=== PATIENT | female | born 1980 | race Caucasian/White ===

== ENCOUNTER 2022-04-09 13:25 | Emergency (ER) | payer MEDICAID, SELFPAY ==
[2022-04-09 13:37] VITALS: BP 144/91; PULSE 85; RESP 18; TEMP 35.9; O2SAT 98; BMI 36.0
--- NOTE | 2022-04-09 13:55 | ED.GENADULT ---
HPI - General Adult General Chief complaint: Unspecified Complaint, Adult Stated complaint: Possible Covid Time Seen by Provider: 04/09/22 13:37 History of Present Illness HPI narrative: 41yo female patient presents to the ED with multiple complaints and request for COVID testing. The patient reports her work has requested she receive a test and no testing facilities are available for evaluation. The patient states that she has had cough, shortness of breath with tightness secondary to cough, nausea, and diarrhea. The patient denies abdominal pain. She has had no known exposure to COVID. She is vaccinated and boosted. she denies fever, but she reports chills and sweats. She has had no treatment prior to arrival. She smokes greater than 1 pack per day. She has no history of CAD, asthma, or COPD. See nursing notes for details. Related Data Home Medications Medication Instructions Recorded Confirmed No Known Home Medications 04/09/22 04/09/22 Allergies Allergy/AdvReac Type Severity Reaction Status Date / Time ibuprofen Allergy Verified 04/09/22 13:36 ketorolac [From Toradol] Allergy Verified 04/09/22 13:36 Review of Systems Const: Reports: chills and fatigue; Denies: fever ENMT: Denies: throat pain, neck pain, hoarseness or nasal congestion Cardio: Reports: shortness of breath with exertion and other (tightness with cough reported); Denies: chest pain, palpitations or lightheadedness Resp: Reports: shortness of breath GI: Reports: nausea and diarrhea; Denies: abdominal pain, vomiting or constipation Musculo: Denies: back pain or neck pain Neuro: Denies: headache, numbness in extremities or weakness in extremities Endo: Reports: fatigue PFSH PFSH Medical History (Updated 04/09/22 @ 14:02 by Liz Knutson DO) No significant past medical history Surgical History (Updated 04/09/22 @ 14:00 by Suzanne Marcos RN) H/O: hysterectomy History of delivery Social History Smoking Status: Current every day smoker How often do you have a drink containing alcohol: never AUDIT-C Alcohol total score: 0 Non-prescribed substance use: denies use Exam Const: Vital Signs, click to edit/add: Vital Signs - 24 hr 04/09/22 13:37 Temperature 96.7 F L Pulse Rate [Right Pulse Oximeter] 85 Respiratory Rate 18 Blood Pressure [Le ft Upper Arm] 144/91 H Pulse Oximetry 98 Documenting provider has reviewed patient's vital signs: yes Common normals: no apparent distress, oriented x3, healthy appearing, alert and well nourished General appearance: cooperative, comfortable, well kempt and well developed; not in distress, not anxious and not ill appearing Nutritional appearance: obese Orientation/consciousness: Yes awake, Yes oriented to person, Yes oriented to place and Yes oriented to time HENMT: Common normals: normocephalic, hearing grossly normal bilaterally, external ears normal and TM's normal bilaterally Head and scalp: normocephalic General ear: hearing grossly impaired External ear: external ears normal Tympanic membrane: TM's normal bilaterally Neck & C-Spine: Common normals: full ROM, no lymphadenopathy and supple Chest: Common normals: palpation of chest normal Resp: Common normals: normal respiratory effort, no retractions, no use of accessory muscles and clear to auscultation bilaterally Effort & inspection: able to speak in complete sentences Auscultation: clear to auscultation bilaterally Cardio: Common normals: regular rate, S1 normal heart sound, S2 normal heart sound and no murmurs Rate: regular rate Heart sounds: S1 normal and S2 normal GI: Common normals: Normal to inspection, nondistended, normoactive bowel sounds present, soft to palpation and non-tender Palpation: soft Extremity: Common normals: normal to inspection, full ROM, normal capillary refill and no clubbing, cyanosis or edema Neuro: Common normals: oriented x3, CN's II-XII intact bilaterally, moves all extremities, no focal motor deficits and no sensory deficits noted Sensorium/orientation: awake, alert, oriented to person, oriented to place and oriented to time Psych: Common normals: mental status grossly normal, thought process normal, cooperative, affect normal, speech normal and activity/motor behavior normal Appearance: well kempt Speech: normal speech Thought process: normal thought process Skin: Common normals: no rashes or lesions noted General skin exam: no rashes or lesions noted Course Vital Signs Vital signs: Initial Vital Signs Temperature 96.7 F L 04/09/22 13:37 Temperature Source Temporal Artery Scan 04/09/22 13:37 Pulse Rate 85 04/09/22 13:37 Respiratory Rate 18 04/09/22 13:37 Blood Pressure 144/91 H 04/09/22 13:37 Blood Pressure Mean 108 04/09/22 13:37 Blood Pressure Position Sitting 04/09/22 13:37 Pulse Oximetry 98 04/09/22 13:37 Oxygen Delivery Method 04/09/22 13:37 Vital Signs Temperature 96.7 F L 04/09/22 13:37 Pulse Rate 85 04/09/22 13:37 Respiratory Rate 18 04/09/22 13:37 Blood Pressure 144/91 H 04/09/22 13:37 Pulse Oximetry 98 04/09/22 13:37 Temperature 96.7 F L 04/09/22 13:37 Pulse Rate 85 04/09/22 13:37 Respiratory Rate 18 04/09/22 13:37 Blood Pressure 144/91 H 04/09/22 13:37 Pulse Oximetry 98 04/09/22 13:37 Medical Decision Making MDM Narrative Medical decision making narrative: Lacey presented to the emergency department requesting a COVID test. She was advised that the emerged department does not stand as a routine testing facility. However, the patient was provided a COVID test. Patient was offered additional workup or evaluation for alternative etiologies, but she only needs COVID testing for work. Lab Data Lab results reviewed: Yes I reviewed the patient's lab results Labs: Lab Results 04/09/22 Range/Units 13:53 SARS-CoV-2 (PCR) Negative SARS-CoV-2 (Negative) Discharge Plan Discharge Clinical Impression: Encounter for laboratory testing for COVID-19 virus Cough Qualifiers: Cough type: acute Qualified Code(s): R05.1 - Acute cough Patient Disposition: Home, Self-Care Condition: Stable Instructions: Acute Cough (ED) Additional Instructions: Thank you for choosing [facility]. Plan not to treat with antibiotics. Patient's questions were answered regarding decision not to treat, and she verbalized understanding. Encouraged continued aggressive treatment of symptoms including: rest, increased fluids, and Ibuprofen and Tylenol as needed, and OTC medication of choice. Patient may consider monitoring oxygen status with a home pulse oximeter. Goal greater than 90%. If decreases with exertion, rest and monitor for improvement. If no improvement noted with rest, may consider additional evaluation in the emergency department. Encouraged to offer to eat and drink to ensure adequate intake. Advised to use bulb suction, or similar device, to keep nasal passageways clear prior to eating and resting. The patient is asked to return if developing severe respiratory or GI distress, inability to eat or drink, decreased urine output, or other new/worsening symptoms develop. Additional discussion regarding the course of the illness, as well as helpful treatments, including use of a vaporizer/humidifier, steamed bathroom, or cool outdoor air. Patient may also consider Vitamin D and C supplementation as well as probiotic. Patient should nursing home in place with no contact with other people until you feel better, AND if has been at least 10 days since first symptoms noted, AND NO FEVER for 24hrs WITHOUT medications. Once resulted, whether positive or negative, you should nursing home in place until your symptoms are improved. Viral illnesses can take 10-14 days to improve. If your symptoms persist please contact your primary care physician for follow-up. If you have worsening, difficulty breathing, or inability to eat/drink please return for reevaluation. Activity Level: No Restrictions Activity Detail: Socially distance until symptoms have resolved. Prescriptions: No Action No Known Home Medications 0RF Stand Alone Forms: Work/School Release, [employer] Info Instructions
--- NOTE | 2022-04-09 14:39 | ED.NURSE ---
work note and dc instructions given to pt. will call pt with covid results.
[2022-04-09 15:19] LABS: SARS PCR* Negative SARS-CoV-2 (Negative)
--- NOTE | 2022-04-09 15:20 | ED.NURSE ---
negative covid result called to pt
== END 2022-04-09 14:40 | disposition home or self-care (01) ==
LOC: ED 14:13
PROVIDERS: Emergency Provider Family Medicine
DX: R05.1 Acute cough (principal); Z20.822 Contact with and (suspected) exposure to COVID-19
CPT/HCPCS: 87635; 99281

== ENCOUNTER 2022-04-26 23:09 | Emergency (ER) | payer MEDICAID, SELFPAY ==
[2022-04-26 23:16] VITALS: BP 145/78; PULSE 89; RESP 18; TEMP 36.4; O2SAT 97; BMI 34.5
--- NOTE | 2022-04-26 23:29 | ED.GENADULT ---
HPI - General Adult General Time Seen by Provider: 23:30 Date Seen: 04/26/22 Chief complaint: Shoulder Injury/Pain Stated complaint: Right Side Shoulder Pain Time Seen by Provider: 04/26/22 23:20 Source: patient Mode of arrival: ambulatory Limitations: no limitations History of Present Illness HPI narrative: 41-year-old right-handed female with a couple of weeks of right shoulder pain. No specific injury. Pain is worse with movement and she describes it as aching. She has tried Tylenol and topical pain medications with minimal improvement. She has tried ice and heat. She has not previously been seen for this. She denies chest pain or shortness of breath. Related Data Home Medications Medication Instructions Recorded Confirmed No Known Home Medications 04/09/22 04/09/22 Allergies Allergy/AdvReac Type Severity Reaction Status Date / Time ibuprofen Allergy Verified 04/09/22 13:36 ketorolac [From Toradol] Allergy Verified 04/09/22 13:36 Review of Systems Status of ROS: Reports: 10 or more systems reviewed and unremarkable except as noted in History and below [facility] Medical History (Updated 04/26/22 @ 23:36 by Luis Eduardo Gonzalez MD) No significant past medical history Surgical History (Updated 04/09/22 @ 14:00 by Suzanne Marcos RN) H/O: hysterectomy History of delivery Social History Smoking Status: Current every day smoker How often do you have a drink containing alcohol: never AUDIT-C Alcohol total score: 0 Non-prescribed substance use: denies use Exam Narrative: Exam Narrative: General: well nourished , NAD Head: Atraumatic and normocephalic ENT: External ears and external nose are normal Eyes: Conjunctiva clear, pupils are equal reactive, external ocular motions are intact Neck: Full spontaneous range of motion of the neck Lungs: No respiratory distress Musculoskeletal: Diffuse tenderness of the right shoulder. Pain with resisted external rotation as well as extension, pain with pop can test. Neurologic: No gross focal neurologic deficits Skin: No rashes Psych: Mood and affect are appropriate Const: Vital Signs, click to edit/add: Vital Signs - 24 hr 04/26/22 23:16 Temperature 97.6 F Pulse Rate [Right Pulse Oximeter] 89 Respiratory Rate 18 Blood Pressure [Ri ght Upper Arm] 145/78 H Pulse Oximetry 97 Oxygen Delivery Me thod Room Air Course Course Hospital Course: Patient seen and examined, prior records are reviewed. Differential diagnosis includes but not limited to strain, sprain, tendinitis, fracture, septic arthritis, bursitis. Patient with right shoulder pain for couple of weeks, no specific injury. On exam she has diffuse tenderness of the shoulder and pain with pop can test as well as external rotation. Symptoms are most consistent with rotator cuff tendinitis. Patient will be started on oral steroid, as well as given limited number of [place] and a sling. Follow-up with orthopedics for consideration for further rate evaluation and imaging, also consider physical therapy. Vital Signs Vital signs: Initial Vital Signs Temperature 97.6 F 04/26/22 23:16 Temperature Source Temporal Artery Scan 04/26/22 23:16 Pulse Rate 89 04/26/22 23:16 Respiratory Rate 18 04/26/22 23:16 Blood Pressure 145/78 H 04/26/22 23:16 Blood Pressure Mean 100 04/26/22 23:16 Blood Pressure Position Sitting 04/26/22 23:16 Pulse Oximetry 97 04/26/22 23:16 Oxygen Delivery Method 04/26/22 23:16 Vital Signs Temperature 97.6 F 04/26/22 23:16 Pulse Rate 89 04/26/22 23:16 Respiratory Rate 18 04/26/22 23:16 Blood Pressure 145/78 H 04/26/22 23:16 Pulse Oximetry 97 04/26/22 23:16 Oxygen Delivery Method 04/26/22 23:16 Temperature 97.6 F 04/26/22 23:16 Pulse Rate 89 04/26/22 23:16 Respiratory Rate 18 04/26/22 23:16 Blood Pressure 145/78 H 04/26/22 23:16 Pulse Oximetry 97 04/26/22 23:16 Oxygen Delivery Method 04/26/22 23:16 Medical Decision Making Medical Records Medical records reviewed: Yes I reviewed the patient's medical records Lab Data Lab results reviewed: Yes I reviewed the patient's lab results Discharge Plan Discharge Clinical Impression: Right rotator cuff tendinitis Patient Disposition: Home, Self-Care Condition: Stable Instructions: Rotator Cuff Tendinitis (ED) Additional Instructions: Remove the sling every hour and due small circles with the arm hanging at your side to prevent frozen shoulder. Call and make an appointment with Orthopedic surgery at the phone number before. You may see either of the doctors or one of the physician assistants for your initial evaluation. Activity Level: Other Activity Detail: Wear sling when working, minimal right hand work and no overhead work. Discharge Diet: Regular Prescriptions: No Action No Known Home Medications Follow Up/Referrals: Orthopedics, [facility] [Provider Group] Claudio Child MD [Staff Physician] - Seng Andrew MD [Staff Physician] - Provider,Not a Local [Primary Care Provider] - Stand Alone Forms: [employer] Info Instructions
[2022-04-26 23:55] VITALS: PULSE 80; RESP 16; O2SAT 98
== END 2022-04-26 23:59 | disposition home or self-care (01) ==
LOC: ED 23:39
PROVIDERS: Emergency Provider Family Medicine
DX: M77.8 Other enthesopathies, not elsewhere classified (principal); S46.011A Strain of muscle(s) and tendon(s) of the rotator cuff of right shoulder, initial encounter
CPT/HCPCS: 99282; 99283

== ENCOUNTER 2022-05-08 09:45 | Outpatient (CLI) | payer MEDICAID, SELFPAY ==
--- NOTE | 2022-05-08 10:15 | MR_ITS ---
[address] [address] Phone:?[phone] Fax:?[phone] Referring Physician Information: Claudio Child M.D. [id number] [facility] [address] Phone:?[phone] Fax:?[phone] Patient:Philip Cr D.O.B:?1980 Sex:?Female Phone:?[phone] [facility] MRN:?[id number] Exam Date:?05/08/2022 ? EXAM: MRI of the RIGHT SHOULDER, without contrast CLINICAL INFORMATION: Female, 41 years old, with right shoulder pain INDICATION: Shoulder impingement, evaluate for internal derangement PRIOR SURGERY: None reported. PLAIN FILMS: None available. COMPARISONS: No prior MRIs available. TECHNICAL INFORMATION: Using a 1.5T MR scanner and a localizing surface coil: Coronals: PD, T2, STIR Sagittals: PD, T2 Axials: PD, T2 SEDATION: None CONTRAST: None FINDINGS: Bones: Proximal humerus: No fracture or marrow edema/pathology. No humeral Hill-Sachs or reverse Hill-Sachs lesion/impaction or contusion. Glenoid: No fracture or marrow edema/pathology. No osseous [place] lesion. Rotator cuff and muscles/tendons: Supraspinatus: Moderate to marked supraspinatus tendinosis without rotator cuff tear or muscle belly atrophy. Infraspinatus: Moderate infraspinatus tendinosis without rotator cuff tear. Teres minor: No tendinopathy, tear or atrophy. Subscapularis: Mild to moderate subscapularis tendinosis with low-grade interstitial splitting of the superior distal tendon, without high-grade rotator cuff tear or atrophy. Deltoid: No strain or atrophy. Coracoacromial arch: Acromion morphology: The acromion has type II morphology. No discrete subacromial osseous spur or os acromiale. Acromiohumeral space: The acromiohumeral space is within normal limits. Coracohumeral space: The coracohumeral space is within normal limits. Acromioclavicular joint: Joint: Mild AC joint arthrosis with mild inferior osteophytosis which contacts and results in mild contour deformity of the superficial. Ligaments: Coracoclavicular ligaments are intact. Bursae: Subacromial-subdeltoid: Trace subacromial bursal thickening/inflammation. Subcoracoid: No convincing subcoracoid bursal thickening/bursitis. Biceps tendon: The long head of the biceps tendon is present within the bicipital groove. The intra-articular and extra-articular segments are intact without tendinosis, tenosynovitis, or displacement. Glenohumeral joint: Effusion/cyst: No significant glenohumeral joint effusion. Articular cartilage: Humeral head: Grade II/III chondral thinning of the superomedial humeral head articular cartilage Glenoid: Grade III/IV chondromalacia along the anteroinferior glenoid with subchondral cystic change. Loose bodies: No discrete intra-articular body within the joint. Labrum:?Degenerative fraying and tearing of the superior, posterior, and inferior labrum. No paralabral ganglion cyst is identified. Inferior glenohumeral ligament/axillary pouch:?Intact. The axillary pouch is normal in thickness and signal. No evidence of adhesive capsulitis or capsular injury. IMPRESSION: 1. Mild glenohumeral degenerative change as described above with small region of grade III/IV chondromalacia and subchondral cystic change along the anteroinferior glenoid. 2. Moderate to marked supraspinatus tendinosis without rotator cuff tear. 3. Mild to moderate subscapularis tendinosis with low-grade interstitial splitting of the superior distal tendon. 4. Moderate infraspinatus tendinosis without rotator cuff tear. 5. Circumferential degenerative fraying and tearing of the glenoid labrum. 6. No tendinopathy, tear, or displacement of the long head of the biceps tendon. 7. Mild AC joint arthrosis with inferior osteophytosis. Trace subacromial bursal thickening/inflammation. KME Electronically signed on 05/10/2022 6:28:00 PM by Marli Yepez M.D.
== END 2022-05-08 09:46 | disposition home or self-care (01) ==
LOC: MRI 09:45
PROVIDERS: Visit Provider Orthopaedic Surgery Sports Medicine
DX: M25.511 Pain in right shoulder (principal); M24.811 Other specific joint derangements of right shoulder, not elsewhere classified; M94.212 Chondromalacia, left shoulder; M19.011 Primary osteoarthritis, right shoulder
CPT/HCPCS: 73221

== ENCOUNTER 2022-05-26 12:38 | Emergency (ER) | payer BC, SELFPAY ==
[2022-05-26 12:45] VITALS: BP 146/94; PULSE 98; RESP 18; TEMP 36.9; O2SAT 99; BMI 36.0
== END 2022-05-26 13:49 | disposition left against medical advice (07) ==
DX: Z53.21 Procedure and treatment not carried out due to patient leaving prior to being seen by health care provider (principal)

== ENCOUNTER 2022-07-01 08:00 | Outpatient (RCR) | payer BC, SELFPAY | END 2022-09-18 14:16 | disposition home or self-care (01) | PROVIDERS: Visit Provider Orthopaedic Surgery Sports Medicine | DX: M77.8 Other enthesopathies, not elsewhere classified (principal); Z51.89 Encounter for other specified aftercare | CPT/HCPCS: 97110; 97140; 97162 ==

== ENCOUNTER 2023-04-07 09:19 | Outpatient (CLI) | payer BC, SELFPAY | END 2023-04-07 09:20 | disposition home or self-care (01) | PROVIDERS: PCP Family Medicine; Visit Provider Family Medicine | DX: Z00.00 Encounter for general adult medical examination without abnormal findings (principal); R53.83 Other fatigue; E66.9 Obesity, unspecified; E78.00 Pure hypercholesterolemia, unspecified; G89.29 Other chronic pain; M25.50 Pain in unspecified joint; E78.5 Hyperlipidemia, unspecified | CPT/HCPCS: 80053; 80061; 82306; 82607; 84443; 86039; 86140; 86200; 86431; 86812 ==

== ENCOUNTER 2023-06-01 10:22 | Emergency (ER) | payer BC, SELFPAY ==
[2023-06-01 10:29] VITALS: BP 137/80; PULSE 80; RESP 20; TEMP 36.2; O2SAT 99; BMI 36.0
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
[2023-06-01 11:10] VITALS: O2SAT 98
--- NOTE | 2023-06-01 11:13 | CRLHL7_ITS ---
For Patients: As a result of the Century Cures Act, medical imaging exams and procedure reports are released immediately into your electronic medical record. You may view this report before your referring provider. If you have questions, please contact your health care provider. INDICATION: Headaches. TECHNIQUE: CT images foramen magnum to vertex without contrast. Multiplanar reconstructions. FINDINGS: Lateral 3rd and 4th ventricles are normal in size and shape. No evidence of acute intracranial hemorrhage. No subdural fluid collections. No mass effect. Preservation of roa-white interface. No hyperdense cerebral artery sign. No evidence of acute infarction. A small well-circumscribed cystic appearing structure in the left inferior putamen is consistent with a incidental perivascular fluid space. No posterior fossa hemorrhage or mass effect. Bony calvarium is unremarkable. Is inflammatory mucosal thickening in the maxillary and ethmoid sinuses. IMPRESSION: 1. No evidence of acute intracranial abnormality. 2. Mild to moderate mucosal thickening in the maxillary and ethmoid sinuses. Otherwise negative. Please note that all CT scans at this facility use dose modulation, iterative reconstruction, and/or weight-based dosing when appropriate to reduce radiation dose to as low as reasonably achievable. Dictated by Emerson Saravia MD @ 06/01/2023 12:58:09 PM (Electronically Signed)
[2023-06-01 11:45] VITALS: BP 135/96
[2023-06-01 11:58] LABS: Basophils Absolute Auto 0.05 K/uL (0.00-0.30); Basophils Percent Auto 0.6 % (0.0-3.0); Eosinophils Absolute Auto 0.24 K/uL (0.00-0.50); Eosinophils Percent Auto 3.1 % (0.0-7.0); Hematocrit 42.1 % (33.0-51.0); Hemoglobin* 14.5 gm/dL (12.0-16.0); Immature Granulocytes Abs Auto 0.01 K/uL (0.00-0.30); Immature Granulocytes Pct Auto 0.1 %; Lymphocytes Absolute Auto 2.45 K/uL (0.90-2.90); Lymphocytes Percent Auto 31.4 % (20-44); Mean Corpuscular HGB Conc 34 gm/dL (32-36); Mean Corpuscular Hemoglobin 29 pg (26-34); Mean Corpuscular Volume 85 fL (80-100); Monocytes Percent Auto 5.1 % (0.0-11.0); Neutrophils Absolute Auto 4.66 K/uL (1.7-7.0); Neutrophils Percent Auto 59.7 % (42.0-72.0); Platelet Count* 239 K/uL (140-440); RDW Coefficient of Variation % 11.5 % (11.5-15.5); Red Blood Count 4.95 m/uL (4.00-5.20); White Blood Count* 7.81 K/uL (4.50-11.00)
[2023-06-01 12:00] LABS: Slide Review Reflex No
[2023-06-01 12:01] LABS: HCO3 VBG 25 mmol/L (21-28); Lactate* 1.5 mmol/L (0.5-1.9); PCO2 VBG 37 mmHG (40-50); PO2 VBG 51.5 mmHG (25-47); pH VBG 7.426 (7.32-7.43)
[2023-06-01 12:22] LABS: Appearance Urine Clear (Clear); Bilirubin Urine Negative (Negative); Blood Urine Negative (Negative); Color Urine Yellow (Yellow); Glucose Urine Negative (Negative); Ketones Urine Negative (Negative); Leukocyte Esterase Urine Negative (Negative); Nitrite Urine Negative (Negative); Protein Urine Negative (Negative); Specific Gravity Urine 1.015 (1.000-1.030); Urobilinogen Urine 0.2 (0.2-1.0)
[2023-06-01 12:24] LABS: D Dimer Quantitative* < 0.27 ug/ml (0.00-0.50)
[2023-06-01 12:35] LABS: Albumin* 4.5 g/dL (3.3-5.0); Chloride* 107 mmol/L (96-114)
[2023-06-01 12:36] LABS: Sodium* 140 mmol/L (135-149)
[2023-06-01 12:38] LABS: Bilirubin Total* 0.5 mg/dL (0.1-1.5); Creatinine* 0.5 mg/dL (0.5-1.5); Est. Creatinine Clearance* 143.99; Estimated Glomerular Filt Rate 121 ml/min
[2023-06-01 12:39] LABS: Alanine Aminotransferase* 21 U/L (4-35); Alkaline Phosphatase* 104 U/L (40-150); Anion Gap 10 mEq/L (7-15); Aspartate Amino Transferase* 25 U/L (12-35); Blood Urea Nitrogen* 10 mg/dL (5-24); Calcium* 9.9 mg/dL (8.4-10.6); Carbon Dioxide* 23 mmol/L (20-32); Glucose* 105 mg/dL (60-115); Total Protein* 8.1 g/dL (6.0-8.3)
[2023-06-01 12:39] LABS: RBC Urine 0-2 (0-2); WBC Urine 0-2 (0-5)
[2023-06-01 12:40] LABS: Magnesium* 1.5 mg/dL (1.5-2.6)
[2023-06-01 12:45] LABS: C Reactive Protein* < 0.5 mg/dL (0.5-1.0)
[2023-06-01 12:47] VITALS: PULSE 69; O2SAT 97
[2023-06-01 12:54] LABS: NT Pro B Type NatriureticPept* < 20 pg/mL; Troponin I* < 0.01 ng/mL (0.01-0.04)
[2023-06-01 12:55] VITALS: BP 118/80; PULSE 75; O2SAT 99
--- NOTE | 2023-06-01 13:02 | CRLHL7_ITS ---
For Patients: As a result of the Century Cures Act, medical imaging exams and procedure reports are released immediately into your electronic medical record. You may view this report before your referring provider. If you have questions, please contact your health care provider. INDICATION: Chest discomfort for days. COMPARISON: Lumbar spine radiographs 05/06/2023. TECHNIQUE: Portable AP erect chest, 1 view. FINDINGS: The lungs are well expanded and clear. No focal or diffuse opacities. No pleural effusion. No pneumothorax. No pneumomediastinum. Normal cardiomediastinal silhouette accounting for volumes and technique. Osseous structures appear normal. IMPRESSION: Normal chest radiograph. Dictated by Namita Raymundo MD @ 06/01/2023 1:55:44 PM (Electronically Signed)
== END 2023-06-01 13:49 | disposition home or self-care (01) ==
PROVIDERS: Emergency Provider Family Medicine; PCP Family Medicine
DX: R20.0 Anesthesia of skin (principal); R20.2 Paresthesia of skin; R19.7 Diarrhea, unspecified; R51.9 Headache, unspecified; R07.9 Chest pain, unspecified
CPT/HCPCS: 36415; 70450; 71045; 80053; 81001; 82803; 83605; 83735; 83880; 84443; 84484; 85025; 85379; 86140; 93005; 94761; 99284; 99285

== ENCOUNTER 2023-08-04 07:51 | Outpatient (CLI) | payer BC, SELFPAY ==
--- NOTE | 2023-08-04 08:15 | CRLHL7_ITS ---
For Patients: As a result of the Century Cures Act, medical imaging exams and procedure reports are released immediately into your electronic medical record. You may view this report before your referring provider. If you have questions, please contact your health care provider. BILATERAL SCREENING MAMMOGRAM WITH COMPUTER-AIDED DETECTION AND TOMOSYNTHESIS TECHNIQUE: CC and MLO views were obtained. These mammographic images have been obtained using full-field digital technique. These mammographic images were interpreted with the benefit of computer-aided detection. Breast Tomosynthesis was used in this interpretation. COMPARISON FILM: 12/29/21. FINDINGS: There are scattered areas of fibroglandular density IMPRESSION: There is no radiographic evidence for malignancy. ASSESSMENT: BI-RADS Category 1: Negative RECOMMENDATION: Routine screening mammogram in 1 year. A lay language report of this examination will be provided to the patient. Jamal Tavera M.D. Diagnostic Radiologist [email or web address] KIKO/Dictated by: Jamal Tavera MD @ 08/10/2023 9:08:00 AM (Electronically Signed)
== END 2023-08-04 07:52 | disposition home or self-care (01) ==
LOC: MAMMO 07:51
PROVIDERS: PCP Family Medicine; Visit Provider Family Medicine
DX: Z12.31 Encounter for screening mammogram for malignant neoplasm of breast (principal)
CPT/HCPCS: 77063; 77067

== ENCOUNTER 2023-10-18 10:44 | Outpatient (CLI) | payer BC, SELFPAY ==
--- OUTSIDE RECORDS SUMMARY | 2023-10-18 10:47 | XMS_ITS | Clinical Summary ---
Author Name Unknown Organization [facility] Address [place], [place] [address] Care Team Providers Care Timber Setter Name Role Phone Trupti Mathias MD Primary Care Provider [phone] Allergies Active Allergy Reactions Criticality Noted Date Comments Adhesive Rash 05/26/2022 Ibuprofen GI Upset 05/26/2022 GI upset Penicillins Hives High 05/26/2022 Ketorolac Rash High 05/26/2022 Medications Medication Sig Dispensed Refills Start Date End Date Status cyclobenzaprine (FLEXERIL) 10 mg tabletIndications:C hest pain, unspecified type,Chronic right shoulder pain Take 1 Tablet (10 mg) by mouth 3 times daily if needed for Muscle Spasm. 21 Tablet 0 05/26/2022 Active acetaminophen (TYLENOL EXTRA STRGTH) 500 mg tablet Take 1,000 mg by mouth every 6 hours if needed. 0 Active doxycycline (VIBRAMYCIN) 100 mg capsuleIndications: Bronchitis,Smoker Take 1 Capsule (100 mg) by mouth two times daily for 7 days. 14 Capsule 0 09/11/2023 09/18/2023 Active Problems Problem Noted Date Diagnosed Date Class 2 obesity due to exces s calories without serious comorbidity with body mass index (BMI) of 39.0 to 39.9 in adult 05/12/2021 Other chronic pain 05/12/2021 Smoker 05/12/2021 Overview: Currently 5 cigarettes a day. Encounters Date Type Department Care Team Description 09/10/2023 11:38 PM BREAKFAST MANAGER - 09/11/2023 1:45 AM BREAKFAST MANAGER Emergency [address] [place] [address] Krunal Mondragon, Bronchitis (Primary Dx); Smoker Discharge Disposition: Home Self Care 09/10/2023 Travel from Last 3 Months Immunizations Name Administration Dates Next Due COVID-19 vaccine (Moderna 100mcg/0.5mL) PEPITO TSANG 03/31/2021,03/03/2021 Social History Tobacco Use Types Packs/Day Years Used Date Smoking Tobacco: Every Day Cigarettes 0.3 15 Smokeless Tobacco: Never Alcohol Use Standard Drinks/Week Comments Yes 0 (1 standard drink = 0.6 oz pur e alcohol) occ Social Connections Answer Date Recorded Frequency of Communication with Friends and Fami ly Not on file 06/04/2023 Financial Resource Strain Answer Date R ecorded Difficulty of Paying Living Expenses 3 05/27/2022 Difficulty of Paying Living Expenses Not on file 05/27/2022 Food Insecurity Answer Date Recorded Worried About Running Out of Food in the Last Ye ar 1 05/27/2022 Transportation Needs Answer Date Record ed Lack of Transportation (Medical) 1 05/27/2022 Housing Stability Answer Date Recorded Unable to Pay for Housing in the Last Year 1 05/27/2022 Sex and Gender Information Value Date Recorded Sex Assigned at Not on file Gender Identity Not on file Sexual Orientation Not on file Obstetrics History Last Filed Vital Signs Vital Sign Reading Time Taken Comments Blood Pressure 127/77 09/11/2023 1:29 AM BREAKFAST MANAGER Pulse 86 09/11/2023 1:29 AM BREAKFAST MANAGER Temperature 36.7 ??C (98.1 ??F) 09/10/2023 1 1:41 PM BREAKFAST MANAGER Respiratory Rate 19 09/10/2023 11:4 1 PM BREAKFAST MANAGER Oxygen Saturation 94% 09/11/2023 1:29 AM BREAKFAST MANAGER Inhaled Oxygen Concentration - - Weight 112.2 kg (247 lb 6.4 oz) 023 11:41 PM BREAKFAST MANAGER Height 170.2 cm (5' 7) 09/10/2023 11:4 1 PM BREAKFAST MANAGER Body Mass Index 38.75 09/10/2023 11:41 PM BREAKFAST MANAGER Plan of Treatment Health Maintenance Due Date Last Done Comments Pneumococcal series for age 6-64 (1 of 2 - PCV) 11/20/1987 Tdap 1992 Depression screening for age 12+ 1993 HIV for age 15-65 1996 Tetanus booster 2001 COVID-19 vaccine series ( season) 2023 03/31/2021, 03/03/2021 Influenza for age 9-49 05/21/2023 BMI (ht and wt on same day) for age 18+ 05/27/2023 0 05/27/2022 Hepatitis C screening for age 18-79 Completed 06/12 Procedures Procedure Name Priority Date/Time Associated Diagnosis Comments COVID-19 MOLECULAR Today 09/11/2023 12 :28 AM BREAKFAST MANAGER XR CHEST 1 VIEW PORTABLE STAT 09/11/2023 12:18 AM BREAKFAST MANAGER EKG 12 LEAD STAT 09/10/2023 11:45 PM BREAKFAST MANAGER from Last 3 Months Results * COVID-19 MOLECULAR (09/11/2023 12:28 AM BREAKFAST MANAGER) COVID 19 [facility] MOLECULAR Not detected Not detected 09/11/2023 12:54 AM [facility] 09/11/2023 12:54 AM [facility] Comment:Specimen submitted t o [facility] for testing. Other SPECIMEN FROM NASAL FOSSAE / Unknown Non-Blood / Unknown 09/11/2023 12:28 AM BREAKFAST MANAGER 09/11/2023 12:32 AM BREAKFAST MANAGER [facility] - 09/11/2023 12:54 AM BREAKFAST MANAGER This test has been authorized by FDA under an Emergency Use Authorization (EUA). This test is only authorized for the duration of time the declaration that circumstances exist justifying the authorization of the emergency use of in vitro diagnostic tests for detection of SARS-CoV-2 virus and/or diagnosis of COVID-19 infection under section 564(b)(1) of the Act, 21 U.S.C. 360bbb-3(b) (1), unless the authorization is terminated or revoked sooner. Krunal Wempen Drevlow DO MICROBIOLOGY [facility] [address] [place] [address] * XR CHEST 1 VIEW PORTABLE (09/11/2023 12:18 AM BREAKFAST MANAGER) Anatomical Region Laterality Modality HEART, THORAX, CHEST Digital Rad iography 09/11/2023 12:4 4 AM BREAKFAST MANAGER Impressions 09/11/2023 12:44 AM BREAKFAST MANAGER No acute cardiopulmonary process identified. No significant interval change. Dictated by Minoo Hall MD @ 09/11/2023 12:44:26 AM (Electronically Signed) Narrative 09/11/2023 12:44 AM BREAKFAST MANAGER For Patients: ??As a result of the Cures Act, medical imaging exams and procedure reports are released immediately into your electronic medical record. ??You may view this report before your referring provider. ??If you have questions, please contact your health care provider. INDICATION: Chest pain. TECHNIQUE: Chest 1 view. COMPARISON: May 26, 2022. FINDINGS: Cardiovascular and mediastinum: ??Cardiomediastinal silhouette is within normal limits. ?? Lungs and pleural spaces: ??Lungs are clear. ?? No evidence of pleural effusion. ??No pneumothorax identified. ?? Bones and soft tissues: ??Unremarkable. ?? Procedure Note Minoo Hall MD - 09/11/2023 For Patients: As a result of the Cures Act, medical imagingexams and procedure reports are released immediately into your electronicmedical record. You may view this report before your referring provider.If you have questions, please contact your health care provider. INDICATION: Chest pain. TECHNIQUE: Chest 1 view. COMPARISON: May 26, 2022. FINDINGS: Cardiovascular and mediastinum: Cardiomediastinal silhouette is withinnormal limits. Lungs and pleural spaces: Lungs are clear. No evidence of pleuraleffusion. No pneumothorax identified. Bones and soft tissues: Unremarkable. IMPRESSION: No acute cardiopulmonary process identified. No significant intervalchange. Dictated by Minoo Hall MD @ 09/11/2023 12:44:26 AM (Electronically Signed) Krunal Mondragon DO GENERAL IMAGING * EKG 12 LEAD (09/10/2023 11:45 PM BREAKFAST MANAGER) Interpretation Sinus rhythm with marked sinus arrhythmia Incomplete right bundle branch block Borderline ECG No previous ECGs available Agree BEYOND NOW Ventricular Rate 96 BPM BEYOND NOW Atrial Rate 96 BPM BEYOND NOW P-R Interval 184 ms BEYOND NOW QRS Duration 94 ms BEYOND NOW QT 362 ms BEYOND NOW QTc 457 ms BEYOND NOW P [place] 67 degrees BEYOND NOW R [place] -15 degrees BEYOND NOW T [place] 45 degrees BEYOND NOW 09/10/2023 11:4 5 PM BREAKFAST MANAGER 09/11/2023 6:27 AM BREAKFAST MANAGER Krunal Mondragon DO EKG ORD BEYOND NOW [place], [place] from Last 3 Months Care Teams Timber Setter Relationship Specialty Start Date End Date Trupti Mathias MD [address] [place] [address] PCP - General Family Practice 05/27/22
== END 2023-10-18 10:45 | disposition home or self-care (01) ==
PROVIDERS: PCP Family Medicine; Visit Provider Obstetrics & Gynecology
DX: N39.3 Stress incontinence (female) (male) (principal); E78.2 Mixed hyperlipidemia
CPT/HCPCS: 80053; 80061; 87086

== ENCOUNTER 2023-11-16 06:01 | Day surgery (SDC) | payer BC, SELFPAY ==
[2023-11-16] MEDS: LACTATED RINGERS 1000 ML 1,000 ML 100 ML IV (06:15)
[2023-11-16 06:23] VITALS: BP 125/77; PULSE 72; RESP 16; TEMP 36.6; O2SAT 96; BMI 39.2
[2023-11-16] MEDS: SODIUM CHLORIDE 0.9 % (FLUSH) 10 ML SYRINGE IVF (06:30)
--- NOTE | 2023-11-16 07:27 | W.PM.H&PU ---
History & Physical Update History & Physical Update H&P Reviewed and patient assessed: No changes noted H&P Updates: Ms. Cr is a 42yo seen in pre-op prior to right labial cyst excision. She is s/p pre-op clearance with Dr. Fry on 11/10. She notes no interval change to her health history. She notes her right labial cyst is still present, seems to have increased in size somewhat. Plan to proceed with EUA and right vulvar cyst excision. Specimen to be sent for pathologic evaluation. Discussed post-op restrictions and expectations. Typically, patients utilize NSAIDs/tylenol for pain control but I will send a very small Rx for tramadol following her case given inability to take NSAIDs. Discussed return precautions including worsening pain, fevers/chills, nausea/vomiting, bleeding and signs/symptoms of VTE. All questions answered. Encouraged smoking cessation for optimal wound healing. Discussed she may return to work as she feels up to it, no lifting restrictions. Recommend pelvic rest x4 weeks.
--- NOTE | 2023-11-16 07:53 | W.ANESCHARGE ---
Anesthesia Charges Start Date/Time Anesthesia Start Date: 11/16/23 Anesthesia Start Time: 07:24 Stop Date/Time Anesthesia Stop Date: 11/16/23 Anesthesia Stop Time: 08:13
[2023-11-16 08:15] VITALS: BP 120/71; PULSE 73; RESP 16; TEMP 36.3; O2SAT 98
--- NOTE | 2023-11-16 08:17 | W.ANESCHARGE ---
Anesthesia Charges Start Date/Time Anesthesia Start Date: 11/16/23 Anesthesia Start Time: 07:24 Stop Date/Time Anesthesia Stop Date: 11/16/23 Anesthesia Stop Time: 08:13
[2023-11-16 08:30] VITALS: BP 121/78; PULSE 70; RESP 16; O2SAT 98
[2023-11-16 08:45] VITALS: BP 125/80; PULSE 69; RESP 16; O2SAT 98
--- NOTE | 2023-11-16 08:49 | W.PM.GYNPROC ---
Procedure Note Time Seen by Provider: 08:00 Date of procedure: 11/16/23 Pre-op diagnosis: Cyst of the right labia minora Post-op diagnosis: same Procedure: Exam under anesthesia, right vulvar cyst excision Anesthesia: MAC and local Complications: None Surgeon: Jeremy Mendez MD Estimated blood loss (mL): 5 IV fluids (mL): 700 Pathology: specimen obtained, sent to pathology Condition: stable Disposition: same day Findings: 1cm right vulvar cyst containing clear, simple fluid Procedure Description: Patient was taken to the operating room with IV running. She was positioned on the operating table in dorsal lithotomy position with yellow fin stirrups. She was prepped and draped in the usual sterile fashion. Exam under anesthesia revealed a mobile, small 1cm cyst of the right labia minora at 8 o'clock. Local infiltration of 0.5% bupivicaine with epinephrine was completed at site of planned excision. A 15 blade was utilized to incise the skin overlying cyst, where the cyst body was subsequently grasped with Adson forceps. In doing so, the cyst ruptured with return of small volume clear fluid. The cyst body was dissected off underlying tissue with a combination of electrocautery and gentle blunt dissection. Collapsed cyst cavity was ecxised and sent for pathologic evaluation. Hemostasis was assured with electrocautery. The labial incision was closed with 4 interrupted suture with 4-0 vicryl. Excellent hemostasis was noted. Procedure was deemed complete. Surgical debrief completed. Right vulvar cyst sent for pathologic evaluation.EBL 5mL, IVF 700mL, no measured UOP. Anesthesia provider noted Lacey she required increased dosage of anesthetic agents to achieve adequate sedation/analgesia. She coughed through a majority of the procedure, likely secondary to known tobacco use disorder. Please see anesthesia documentation for further details.
== END 2023-11-16 08:57 | disposition home or self-care (01) ==
PROVIDERS: PCP Family Medicine; Visit Provider Obstetrics & Gynecology
PROC: (CPT 56740; principal; 2023-11-16 07:30)
DX: N90.7 Vulvar cyst (principal)
CPT/HCPCS: 11421; 00940; 88305; 88312; J1100; J2250; J2405; J2704; J3010; J3490; J7120